=== PATIENT | male | born 1975 | race Caucasian/White ===

== ENCOUNTER 2020-01-10 10:36 | Emergency (ER) | payer OTHER, SELFPAY ==
[2020-01-10 11:09] VITALS: BP 153/99; PULSE 94; RESP 18; TEMP 36.8; O2SAT 97
--- NOTE | 2020-01-10 11:17 | ED.EXTPRO ---
HPI - Extremity Problem General Chief complaint: Extremity Problem,Nontraumatic Stated complaint: left big toe pain Time Seen by Provider: 01/10/20 11:17 Source: patient Mode of arrival: ambulatory Limitations: no limitations History of Present Illness HPI Narrative: Negro Lentz is a 44 yo male with no PMH who comes to express care with left great toe pain. No trauma with popping toe a few weeks ago and also uses steel toed boots at work Related Data Allergies Allergy/AdvReac Type Severity Reaction Status Date / Time No Known Allergies Allergy Verified 01/10/20 10:59 Review of Systems Review of Systems: Narrative: CONSTITUTIONAL: Denies fever, chills, sweats. EYES: Denies visual changes, redness, discharge. ENT: Denies rhinorrhea, congestion, sore throat, otalgia. CARDIOVASCULAR: Denies chest pain, palpitations, edema. RESPIRATORY: Denies dyspnea, wheezing, cough GASTROINTESTINAL: Denies abdominal pain, nausea, vomiting, diarrhea. GENITOURINARY: Denies dysuria, hematuria, abnormal discharge SKIN: Denies rash or itching. NEUROLOGIC: Denies numbness, or focal weakness. PSYCHIATRIC: Denies anxiety or depression. [facility] Family History Family History Other No acute medical problems Social History Social History (Updated 01/10/20 @ 11:20 by rAanza Awan CNP) Smoking status: Never smoker Alcohol intake: current Comments At time of signature, I agree with nursing past medical, surgical, social and family history. There is no relevant family history pertinent to the presenting complaint. Exam Narrative: Exam Narrative: GENERAL: This is a well-nourished, well-developed patient, in mild distress. HEAD: normocephalic, atraumatic. EYES: Sclera clear/white. Vision is grossly intact. EARS: External ears normal, Hearing grossly intact. NOSE: External nose normal without nasal discharge, nares without redness, no rhinorrhea. THROAT: Mucous membranes moist, posterior pharynx NECK: Neck supple, non-tender CARDIOVASCULAR: Regular rate and rhythm without murmurs, gallops, or rubs. RESPIRATORY: Clear to auscultation. Breath sounds equal bilaterally. No wheezes, rales, or rhonchi. GASTROINTESTINAL: Abdomen soft, non-tender, SKIN: warm, intact with no suspicious lesions or rash, good texture and turgor. NEURO: awake, alert, and oriented to person, place and time. There were no obvious focal neurologic abnormalities. Steady gait EXTREMITIES: Normal range of motion. L great toe pain - pain with pressure and movement BACK: Nontender without deformity Course Course Emergency Course: started on colchicine and naprosyn Given sheet of foods to avoid with gout Follow up with pcp Vital Signs Vital signs: Vital Signs Temperature 98.3 F 01/10/20 11:09 Pulse Rate 94 01/10/20 11:09 Respiratory Rate 18 01/10/20 11:09 Blood Pressure 153/99 H 01/10/20 11:09 Pulse Oximetry 97 01/10/20 11:09 Temperature 98.3 F 01/10/20 11:09 Pulse Rate 94 01/10/20 11:09 Respiratory Rate 18 01/10/20 11:09 Blood Pressure 153/99 H 01/10/20 11:09 Pulse Oximetry 97 01/10/20 11:09 MDM - Extremity (Nontraumatic) Differential Diagnosis Differential diagnosis: Likely gout, cellulitis, lower extremity edema and other Discharge Plan Discharge Clinical Impression: Gout Qualifiers: Gout site: foot Gout etiology: idiopathic Chronicity: acute Laterality: left Qualified Code(s): M10.072 - Idiopathic gout, left ankle and foot Patient Disposition: Home, Self-Care Condition: Stable Instructions: Gout (ED) Additional Instructions: Take colchicine as directed, may use Naprosyn for pain but should take with food. Loose shoes all toes painful Prescriptions: New colchicine 0.6 mg tablet 0.6 mg PO BID Qty: 20 RF: 0 naproxen [Naprosyn] 500 mg tablet 500 mg PO BID Qty: 30 RF: 0 Follow-up/Referrals: Harms,Allan Mckeon M.D. [Primary Care Pro
== END 2020-01-10 11:53 | disposition home or self-care (01) ==
PROVIDERS: Emergency Provider Nurse Practitioner; PCP Family Medicine
DX: M10.072 Idiopathic gout, left ankle and foot (principal)
CPT/HCPCS: 99213; G0463